=== PATIENT | female | born 1940 | race Caucasian/White ===

== ENCOUNTER → 2018-02-27 | Outpatient (CLI) | payer OTHER ==
[~2018-02-27] MED LIST: ADULT LOW DOSE81 MG PO; BENAZEPRIL-HCT1 EA11 PO; NORVASC10 MG PO; VITAMIN D35000 UNI1 PO; ZYRTEC PO
== END ==
LOC: M.RAD 09:44
DX: Z12.31 Encounter for screening mammogram for malignant neoplasm of breast (principal)

== ENCOUNTER → 2019-07-15 | Outpatient (CLI) | payer MEDICARE | LOC: M.RAD 10:40 | DX: Z12.31 Encounter for screening mammogram for malignant neoplasm of breast (principal) ==